=== PATIENT | male | born 1975 | race Caucasian/White ===

== ENCOUNTER 2023-08-06 11:42 | Emergency (ER) | payer OTHER ==
[~2023-08-06] VITALS: Ht 170.2 cm; Wt 67.3 kg
[2023-08-06] MEDS ORDERED: ZESTRIL10 M1 PO (12:03)
[2023-08-06] MEDS ORDERED: GLYXAMBI1 TA1 PO (12:03)
[2023-08-06] MEDS ORDERED: Home HYDROcodone/Acetaminophen 5/325 MG #4 TABS/PACK PO ONE (13:15)
[2023-08-06] MEDS ORDERED: Morphine 4 MG/ML VIAL IV ONE (13:55)
[2023-08-06 14:25] VITALS: BP 106/74
== END 2023-08-06 13:40 | disposition home or self-care (01) ==
LOC: ED 11:42
DX: S52.321A Displaced transverse fracture of shaft of right radius, initial encounter for closed fracture (principal); S52.201A Unspecified fracture of shaft of right ulna, initial encounter for closed fracture; W22.8XXA Striking against or struck by other objects, initial encounter; Y93.39 Activity, other involving climbing, rappelling and jumping off; Y92.59 Other trade areas as the place of occurrence of the external cause; Y99.0 Civilian activity done for income or pay
CPT/HCPCS: J2270